=== PATIENT | female | born 1955 | race Two or more races ===

== ENCOUNTER 2021-01-26 04:22 | Day surgery (SDC) | payer OTHER ==
[2021-01-25 08:28] VITALS: BMI 22.5
[2021-01-26] MEDS ORDERED: LIDOCAINE HCL/PF 2% SDV 5ML VIAL ONE (10:29)
[2021-01-26] MEDS ORDERED: ONDANSETRON 4 MG/2 ML VIAL ONE (10:29)
[2021-01-26] MEDS ORDERED: MIDAZOLAM HCL 2 MG/2 ML SINGLE DOSE VIAL ONE (10:29)
[2021-01-26] MEDS ORDERED: DEXAMETHASONE SOD PHOSPHATE 4 MG/1 ML VIAL ONE (10:29)
[2021-01-26] MEDS ORDERED: PROPOFOL 20 ML ONE (10:29)
[2021-01-26] MEDS ORDERED: ONDANSETRON 4 MG/2 ML VIAL IVPUSH PRN ×2 (10:53→11:07)
[2021-01-26] MEDS ORDERED: ACETAMINOPHEN 1000 MG/100 ML VIAL (NON FORMULARY) IVPB ONE ×2 (10:53→11:00)
[2021-01-26] MEDS ORDERED: LACTATED RINGERS SOLUTION 1,000 ML IV SCH (11:00)
[2021-01-26] MEDS ORDERED: oxyCODONE HCL 5 MG TABLET PO PRN ×2 (11:07→11:58)
[2021-01-26] MEDS ORDERED: IBUPROFEN 600 MG TABLET (FP) PO PRN (11:07)
[2021-01-26] MEDS ORDERED: IBUPROFEN 800 MG/8 ML IJ IVPB PRN (11:07)
[2021-01-26] MEDS ORDERED: ELECTROLYTE-148 SOLN 1,000 ML IV SCH (11:15)
[2021-01-26] MEDS ORDERED: SILVER NITRATE 75% APPLIC STCK 1 PKT EACH TP ONE ×2 (11:36)
[2021-01-26 14:24] VITALS: BP 120/66; PULSE 74; TEMP 98.6
== END 2021-01-26 14:15 | disposition home or self-care (01) ==
LOC: JASU-SURG 04:22
PROVIDERS: ATTEND Obstetrics & Gynecology
PROC: 0UB98ZX Excision of Uterus, Via Natural or Artificial Opening Endoscopic, Diagnostic (ICD-10-PCS; principal; 2021-01-26 10:00)
PROC: 0UDB7ZZ Extraction of Endometrium, Via Natural or Artificial Opening (ICD-10-PCS; 2021-01-26 10:00)
DX: N84.0 Polyp of corpus uteri (principal)
CPT/HCPCS: 88305-TC; 94760

== ENCOUNTER 2023-06-06 04:36 | Day surgery (SDC) | payer OTHER ==
[2023-06-01 16:10] VITALS: BMI 23.5
[2023-06-06] MEDS ORDERED: PROPOFOL 20 ML ONE (08:52)
[2023-06-06] MEDS ORDERED: MIDAZOLAM HCL 2 MG/2 ML SINGLE DOSE VIAL ONE (08:52)
[2023-06-06] MEDS ORDERED: IBUPROFEN 600 MG TABLET (FP) PO PRN (09:04)
[2023-06-06] MEDS ORDERED: ONDANSETRON 4 MG/2 ML VIAL IVPUSH PRN ×2 (09:04→10:02)
[2023-06-06] MEDS ORDERED: IBUPROFEN 800 MG/8 ML IJ IVPB PRN (09:04)
[2023-06-06] MEDS ORDERED: oxyCODONE HCL 5 MG TABLET PO PRN (09:04)
[2023-06-06] MEDS ORDERED: ceFAZolin SODIUM 1 GM VIAL ONE (09:08)
[2023-06-06] MEDS ORDERED: DEXAMETHASONE SOD PHOSPHATE 4 MG/1 ML VIAL ONE (09:08)
[2023-06-06] MEDS ORDERED: ELECTROLYTE-148 SOLN 1,000 ML IV SCH (09:15)
[2023-06-06] MEDS ORDERED: ePHEDrine SULFATE 50 MG/1 ML AMPULE ONE (09:26)
[2023-06-06] MEDS ORDERED: ACETAMINOPHEN INJECTION 100 ML IVPB ONE (10:20)
[2023-06-06] MEDS: ACETAMINOPHEN 1000 MG/100 ML BAG IVPB ONE (10:26)
[2023-06-06 10:44] VITALS: RESP 18
[2023-06-06] MEDS: LACTATED RINGERS SOLUTION 1,000 ML IV SCH (10:56)
[2023-06-06 11:09] VITALS: TEMP 97
[2023-06-06 12:06] VITALS: BP 122/68; PULSE 88
== END 2023-06-06 12:08 | disposition home or self-care (01) ==
LOC: JASU-SURG 04:36
PROVIDERS: ATTEND Obstetrics & Gynecology
PROC: 0UB98ZZ Excision of Uterus, Via Natural or Artificial Opening Endoscopic (ICD-10-PCS; principal; 2023-06-06 09:00)
DX: D25.9 Leiomyoma of uterus, unspecified (principal)
CPT/HCPCS: 86850; 86900; 86901; 88305-TC; 94760; J0131